=== PATIENT | female | born 1970 | race African-American/Black ===

== ENCOUNTER 2016-12-12 09:42 | Emergency (ER) | payer OTHER ==
[~2016-12-12] VITALS: Ht 154.9 cm; Wt 72.6 kg
[~2016-12-12 09:42] MED LIST: ACETAMINOPHEN650 M5 PO; COLACE100 MG PO; FLAGYL500 MG PO; IRON325 M1 PO; IRON325 PO; KEFLEX500 MG PO; MACROBID 100 M100 M1 PO; NAPROSYN500 MG PO; NOHOMEMEDICATIONS; NORFLEX100 MG PO; TRINATE TABLET1 TAB PO; VITCB500GO PO
[2016-12-12 11:20] LABS: MCH 15.4 pg (26.0-34.0); WBC 3.3 thou/uL (4.0-11.0)
[2016-12-12 11:22] LABS: MCHC 27.5 g/dL (28.0-37.0); MCV 56.1 fL (80.0-100.0); PLATELET COUNT 302 thou/uL (150-400); RBC 3.41 mil/uL (4.20-5.00); RDW 22.2 % (10.5-14.5)
[2016-12-12 11:24] LABS: MANUAL DIFF YES
[2016-12-12 11:27] LABS: HEMATOCRIT 19.1 % (37.0-47.0); HEMOGLOBIN 5.3 gm/dL (12.0-15.0)
[2016-12-12 11:47] LABS: ABSOLUTE NEUTROPHILS 1.9 thou/uL (1.4-8.2); ANISOCYTOSIS 1+; HYPOCHROMASIA 3+; MICROCYTES 3+; PLATELET ESTIMATE NORMAL; TOTAL CELL COUNT 100
[2016-12-12 13:05] LABS: URINE BLOOD 3+ (Negative); URINE COLOR RED; URINE GLUCOSE-RANDOM* NEGATIVE (Negative); URINE KETONES NEGATIVE (Negative); URINE NITRITE NEGATIVE (Negative); URINE PROTEIN (DIPSTICK) 3+ (Negative); URINE SPECIFIC GRAVITY >= 1.030 (1.003-1.035)
[2016-12-12 13:09] LABS: ICTOTEST (BILI CONFIRMATORY) Negative (Negative); URINE BILIRUBIN NEGATIVE (Negative)
[2016-12-12 13:13] LABS: CASTS None Seen /LPF (None Seen); CRYSTALS None Seen /LPF (None Seen); SQUAMOUS 0-3 Few /LPF (0-3); URINE RBC >20 Many /HPF (0-2); URINE WBC 6-15 Few /HPF (0-5)
[2016-12-12 13:14] LABS: BACTERIA 1-9 Few /HPF (None Seen)
[2016-12-13 14:12] LABS: CHLAMYDIA TRACHOMATIS-PCR Negative (Negative); NEISSERIA GONORRHEA-PCR Negative (Negative)
== END 2016-12-12 15:49 | disposition short-term general hospital (02) ==
LOC: ER 09:42
PROVIDERS: Nurse Practitioner
DX: N93.9 Abnormal uterine and vaginal bleeding, unspecified (principal); R10.2 Pelvic and perineal pain